=== PATIENT | male | born 1940 | race Hispanic/Latino ===

== ENCOUNTER 2022-04-28 10:03 | Outpatient (CLI) | payer OTHER ==
--- NOTE | 2022-04-28 11:35 | Cat Scan Report ---
CT ABDOMEN AND PELVIS WITHOUT CONTRAST INDICATION / CLINICAL INFORMATION: R33.8 OTHER URINE RETENTION. TECHNIQUE: Axial CT images were obtained through the abdomen and pelvis without IV contrast. All CT scans at [facility] are performed using CT dose reduction for ALARA by means of automated exposure control. COMPARISON: None available. FINDINGS: LOWER CHEST: Mild emphysema is noted along the lung bases. There is left lung volume loss with medias tinal shift to the left. No other significant abnormality. LIVER: No significant abnormality. GALLBLADDER: No significant abnormality. BILE DUCTS: No significant abnormality. PANCREAS: No significant abnormality. SPLEEN: No significant abnormality. ADRENALS: No significant abnormality of the right adrenal gland. There is a hypodense left adrenal no dule measuring 1.1 x 1.1 cm on image 50 of series 2 that most likely represents an adenoma. RIGHT KIDNEY/URETER: Multiple right renal hypodensities likely representing cysts measure up to 1.7 c m along the midpole. There are 2 nonobstructive lower pole stones measuring up to 2 mm. No other sign ificant abnormality. LEFT KIDNEY/URETER: No significant abnormality. STOMACH/SMALL BOWEL: No significant abnormality. COLON: There is noninflamed sigmoid diverticulosis. No other significant abnormality. APPENDIX: No significant abnormality. PERITONEUM: No free fluid. No free air. No fluid collection. LYMPH NODES: No significant adenopathy. VASCULATURE: There is moderate generalized atherosclerosis. No other significant abnormality. URINARY BLADDER: Drained by a suprapubic catheter. REPRODUCTIVE ORGANS: No significant abnormality. ADDITIONAL FINDINGS: None. BONES: No acute findings. 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 IMPRESSION: 1. No acute findings to explain the patient's urinary retention. 2. Additional findings as above. Signer Name: Kevin Moy MD Signed: 04/28/2022 11:25 AM Workstation Name: [id number]
== END 2022-04-28 10:04 | disposition home or self-care (01) ==
LOC: CT 10:03
PROVIDERS: ATTEND Urology
DX: J43.9 Emphysema, unspecified (principal); R33.8 Other retention of urine; E27.9 Disorder of adrenal gland, unspecified; K57.30 Diverticulosis of large intestine without perforation or abscess without bleeding; I70.0 Atherosclerosis of aorta; M47.819 Spondylosis without myelopathy or radiculopathy, site unspecified
CPT/HCPCS: 74176